=== PATIENT | female | born 1940 | race Caucasian/White ===

== ENCOUNTER → 2017-01-12 | Outpatient (REF) | payer MEDICARE ==
[~2017-01-12] MED LIST: ASPI81TA83 OR; ATEN50TA2 OR; HYDR25TA6 OR; LIPI20TA OR
[2017-01-12 12:15] LABS: BASO % 0.7 % (0.0-1.0); EOS # 0.3 K/mm3 (0.0-0.50); EOS % 5.3 % (0.0-3.0); LARGE UNSTAINED CELL # 0.2 K/mm3 (0.0-0.4); LARGE UNSTAINED CELL % 2.8 % (0.0-4.0); LYMPH # 2.3 K/mm3 (1.5-4.5); LYMPH % 32.4 % (24.0-44.0); MEAN CORPUSCULAR HEMOGLOBIN 30.5 pg (27.0-33.0); MEAN CORPUSCULAR HGB CONC 33.9 g/dl (32.0-36.5); MEAN CORPUSCULAR VOLUME 90.1 fl (80.0-96.0); MONO # 0.5 K/mm3 (0.0-0.8); MONO % 7.1 % (0.0-5.0); NEUTROPHILS # 3.3 K/mm3 (1.8-7.7); NEUTROPHILS % 51.8 % (36.0-66.0); PLATELET COUNT, AUTOMATED 204 k/mm3 (150-450); RED CELL DISTRIBUTION WIDTH 13.2 % (11.5-14.5); WHITE BLOOD COUNT 6.4 K/mm3 (4.0-10.0)
[2017-01-12 12:32] LABS: ALBUMIN 3.3 GM/DL (3.2-5.2); ALBUMIN/GLOBULIN RATIO 1.14 (1.00-1.93); ALKALINE PHOSPHATASE 90 U/L (45-117); ALT/SGPT 19 U/L (12-78); ANION GAP 6 MEQ/L (8-16); AST/SGOT 13 U/L (15-37); BILIRUBIN,TOTAL 0.6 MG/DL (0.2-1.0); BLOOD UREA NITROGEN 16 MG/DL (7-18); CALCIUM LEVEL 8.6 MG/DL (8.8-10.2); CARBON DIOXIDE LEVEL 28 MEQ/L (21-32); CHLORIDE LEVEL 108 MEQ/L (98-107); CHOLESTEROL LEVEL 148 MG/DL (<200); CREATININE FOR GFR 0.84 MG/DL (0.55-1.02); FREE T4 0.94 NG/DL (0.76-1.46); GLOMERULAR FILTRATION RATE > 60.0 (>39); GLUCOSE, FASTING 115 MG/DL (83-110); POTASSIUM SERUM 4.2 MEQ/L (3.5-5.1); SODIUM LEVEL 142 MEQ/L (136-145); TOTAL PROTEIN 6.2 GM/DL (6.4-8.2); TRIGLYCERIDES LEVEL 115 MG/DL (<150)
== END ==
LOC: M SFHCPLAZ 09:19
PROVIDERS: ATTEND Nurse Practitioner Family
DX: I10 Essential (primary) hypertension (principal); E11.9 Type 2 diabetes mellitus without complications; H04.123 Dry eye syndrome of bilateral lacrimal glands; E78.4 Other hyperlipidemia

== ENCOUNTER → 2018-01-28 | Outpatient (CLI) | payer MEDICARE | LOC: M WHC 14:30 | DX: Z12.31 Encounter for screening mammogram for malignant neoplasm of breast (principal) | CPT/HCPCS: 77067 ==

== ENCOUNTER → 2018-04-25 | Outpatient (REF) | payer MEDICARE ==
[2018-04-25 12:56] LABS: ESTIMATED AVERAGE GLUCOSE 120 MG/DL (60-110); HEMOGLOBIN A1c 5.8 %
[2018-04-25 13:09] LABS: ALBUMIN 3.4 GM/DL (3.2-5.2); ALBUMIN/GLOBULIN RATIO 1.06 (1.00-1.93); ALKALINE PHOSPHATASE 68 U/L (45-117); ALT/SGPT 26 U/L (12-78); ANION GAP 12 MEQ/L (8-16); AST/SGOT 18 U/L (7-37); BILIRUBIN,TOTAL 0.6 MG/DL (0.2-1.0); BLOOD UREA NITROGEN 21 MG/DL (7-18); CALCIUM LEVEL 8.1 MG/DL (8.8-10.2); CARBON DIOXIDE LEVEL 22 MEQ/L (21-32); CHLORIDE LEVEL 112 MEQ/L (98-107); CHOLESTEROL LEVEL 127 MG/DL (<200); CHOLESTEROL RISK RATIO 2.116 (<5); CREATININE FOR GFR 0.79 MG/DL (0.55-1.30); GLOMERULAR FILTRATION RATE > 60.0 (>39); GLUCOSE, FASTING 98 MG/DL (70-100); HDL CHOLESTEROL 60 MG/DL (>40); LDL CHOLESTEROL 48 MG/DL (<100); NON-HDL-C 67 MG/DL; POTASSIUM SERUM 4.1 MEQ/L (3.5-5.1); SODIUM LEVEL 146 MEQ/L (136-145); TOTAL PROTEIN 6.6 GM/DL (6.4-8.2); TRIGLYCERIDES LEVEL 97 MG/DL (<150)
[2018-04-25 13:53] LABS: MALB URINE SIEMENS 15.7 MG/L
[2018-04-25 14:12] LABS: MAU/CREAT RATIO 13.1 MCG/MG (0.0-30.0)
== END ==
LOC: M SFHCPLAZ 09:52
DX: E11.9 Type 2 diabetes mellitus without complications (principal); E78.4 Other hyperlipidemia
CPT/HCPCS: 80053

== ENCOUNTER → 2019-05-09 | Outpatient (REF) | payer MEDICARE ==
[2019-05-09 12:17] LABS: ALBUMIN 3.7 GM/DL (3.2-5.2); ALT/SGPT 33 U/L (12-78); BILIRUBIN,TOTAL 0.9 MG/DL (0.2-1.0); BLOOD UREA NITROGEN 18 MG/DL (7-18); CALCIUM LEVEL 9.2 MG/DL (8.8-10.2); CARBON DIOXIDE LEVEL 29 MEQ/L (21-32); CHLORIDE LEVEL 108 MEQ/L (98-107); CHOLESTEROL LEVEL 155 MG/DL (<200); CHOLESTEROL RISK RATIO 2.627 (<5); CREATININE FOR GFR 0.95 MG/DL (0.55-1.30); GLOMERULAR FILTRATION RATE > 60.0 (>32); GLUCOSE, FASTING 136 MG/DL (70-100); HDL CHOLESTEROL 59 MG/DL (>40); LDL CHOLESTEROL 64 MG/DL (<100); NON-HDL-C 96 MG/DL; POTASSIUM SERUM 4.2 MEQ/L (3.5-5.1); SODIUM LEVEL 144 MEQ/L (136-145); TOTAL 25(OH) VITAMIN D 36.6 NG/ML (30.0-100.0); TOTAL PROTEIN 6.6 GM/DL (6.4-8.2); TRIGLYCERIDES LEVEL 160 MG/DL (<150)
[2019-05-09 12:29] LABS: HEMOGLOBIN A1c 6.3 %
[2019-05-09 12:43] LABS: MALB URINE SIEMENS 38.6 MG/L; MAU/CREAT RATIO 28.3 MCG/MG (0.0-30.0)
== END ==
LOC: M SFHCPLAZ 09:25
PROVIDERS: ATTEND Nurse Practitioner Family
DX: E11.9 Type 2 diabetes mellitus without complications (principal); E78.49 Other hyperlipidemia; M85.80 Other specified disorders of bone density and structure, unspecified site; Z79.82 Long term (current) use of aspirin

== ENCOUNTER → 2019-12-29 | Outpatient (REF) | payer MEDICARE ==
[2019-12-29 13:52] LABS: HEMOGLOBIN A1c 6.2 %
[2019-12-29 14:00] LABS: ALBUMIN 3.8 GM/DL (3.2-5.2); ALT/SGPT 29 U/L (12-78); BILIRUBIN,TOTAL 0.8 MG/DL (0.2-1.0); BLOOD UREA NITROGEN 21 MG/DL (7-18); CALCIUM LEVEL 9.4 MG/DL (8.8-10.2); CARBON DIOXIDE LEVEL 30 MEQ/L (21-32); CHLORIDE LEVEL 107 MEQ/L (98-107); CREATININE FOR GFR 0.91 MG/DL (0.55-1.30); GLOMERULAR FILTRATION RATE > 60.0 (>32); GLUCOSE, FASTING 138 MG/DL (70-100); POTASSIUM SERUM 4.1 MEQ/L (3.5-5.1); SODIUM LEVEL 143 MEQ/L (136-145); TOTAL PROTEIN 6.9 GM/DL (6.4-8.2)
== END ==
LOC: M PLALAB 11:32
PROVIDERS: ATTEND Nurse Practitioner Family
DX: E11.9 Type 2 diabetes mellitus without complications (principal); M85.80 Other specified disorders of bone density and structure, unspecified site

== ENCOUNTER → 2020-01-08 | Outpatient (REF) | payer MEDICARE ==
[2020-01-08 12:47] LABS: CREATININE, URINE 69.5 MG/DL; MALB URINE SIEMENS 9.3 MG/L; MAU/CREAT RATIO 13.3 MCG/MG (0.0-30.0)
== END ==
LOC: M SFHCPLAZ 10:58
PROVIDERS: ATTEND Nurse Practitioner Family
DX: E11.9 Type 2 diabetes mellitus without complications (principal)

== ENCOUNTER → 2020-02-13 | Outpatient (CLI) | payer MEDICARE ==
--- NOTE | 2020-02-13 14:30 | REPMRS ---
Patient History The patient states she has not had a clinical breast exam in over a year. Family history of breast cancer at age 50 or over in mother. Benign excisional biopsy of the left breast. No Hormone Replacement Therapy 3D TOMOSYNTHESIS WAS PERFORMED. [facility] lifetime risk for [facility] cancer is 3.8%. VOLPARA DENSITY B. Digital Woman Screen Mammo: February 13, 2020 - Exam #: [id number] Bilateral CC and MLO view(s) were taken. Technologist: Sharlene Berry, Technologist Prior study comparison: January 28, 2018, bilateral digital woman screen mammo performed at [facility]. December 12, 2016, left breast digital mammo diagnostic unilateral, performed at [facility]. FINDINGS: There are scattered fibroglandular densities. There has been no change in the appearance of the mammogram from the prior studies. There is a mild amount of residual fibroglandular tissue which is fairly symmetric. There is no interval development of dominant mass, architectural distortion, or clustered microcalcification suggestive of malignancy. Assessment: BI-RADS/ACR category 1 mammogram. Negative Mammogram. Recommendation Routine screening mammogram in 1 year (for women over age 40). This mammogram was interpreted with the aid of an FDA-approved computer-aided dectection system. Electronically Signed By: Jevon Ferreira MD 02/13/20 [id number]
== END ==
LOC: M WHC 13:16
PROVIDERS: ATTEND Nurse Practitioner Family
DX: Z12.31 Encounter for screening mammogram for malignant neoplasm of breast (principal); Z80.3 Family history of malignant neoplasm of breast

== ENCOUNTER → 2020-04-29 | Outpatient (REF) | payer MEDICARE ==
[2020-04-29 14:27] LABS: HEMOGLOBIN A1c 5.8 %
[2020-04-29 14:45] LABS: ALBUMIN 3.5 GM/DL (3.2-5.2); ALT/SGPT 26 U/L (12-78); BILIRUBIN,TOTAL 0.6 MG/DL (0.2-1.0); BLOOD UREA NITROGEN 17 MG/DL (7-18); CALCIUM LEVEL 9.1 MG/DL (8.8-10.2); CARBON DIOXIDE LEVEL 28 MEQ/L (21-32); CHLORIDE LEVEL 108 MEQ/L (98-107); CHOLESTEROL LEVEL 147 MG/DL (<200); CHOLESTEROL RISK RATIO 2.333 (<5); CREATININE FOR GFR 0.95 MG/DL (0.55-1.30); GLOMERULAR FILTRATION RATE > 60.0 (>32); GLUCOSE, FASTING 141 MG/DL (70-100); HDL CHOLESTEROL 63 MG/DL (>40); LDL CHOLESTEROL 65 MG/DL (<100); NON-HDL-C 84 MG/DL; POTASSIUM SERUM 4.2 MEQ/L (3.5-5.1); SODIUM LEVEL 143 MEQ/L (136-145); TOTAL 25(OH) VITAMIN D 44.2 NG/ML (30.0-100.0); TOTAL PROTEIN 6.5 GM/DL (6.4-8.2); TRIGLYCERIDES LEVEL 95 MG/DL (<150)
[2020-04-29 14:56] LABS: MALB URINE SIEMENS 89.1 MG/L; MAU/CREAT RATIO 53.6 MCG/MG (0.0-30.0)
== END ==
LOC: M PLALAB 10:46
PROVIDERS: ATTEND Nurse Practitioner Family
DX: E11.9 Type 2 diabetes mellitus without complications (principal); E78.49 Other hyperlipidemia; M85.80 Other specified disorders of bone density and structure, unspecified site

== ENCOUNTER 2021-02-09 16:52 | Emergency (ER) | payer MEDICARE ==
[~2021-02-09] VITALS: Ht 157.5 cm; Wt 77.1 kg
[2021-02-09] MEDS ORDERED: ATEN50TA2 (16:59)
--- NOTE | 2021-02-09 17:49 | REP ---
INDICATION: hypertension. COMPARISON: Portable exam 03/02/2011 the only prior FINDINGS: The superior mediastinal structures are midline. The cardiac silhouette is unremarkable in size, shape, and position. The diaphragmatic surfaces of the lungs are regular, and the costophrenic angles are clear. The pulmonary molina are clear. The imaged osseous structures are intact. IMPRESSION: There is no acute cardiopulmonary disease. <Electronically signed by Wilmar Zapata > 02/09/21 [id number]
[2021-02-09 18:11] LABS: BASO # 0.1 10^3/uL (0.0-0.2); BASO % 0.7 % (0.0-1.0); EOS # 0.1 10^3/uL (0.0-0.5); EOS % 1.8 % (0.0-3.0); HEMATOCRIT 51.1 % (36.0-47.0); HEMOGLOBIN 16.9 g/dl (12.0-15.5); LYMPH # 1.3 10^3/uL (1.5-5.0); LYMPH % 18.8 % (24.0-44.0); MEAN CORPUSCULAR HEMOGLOBIN 30.3 pg (27.0-33.0); MEAN CORPUSCULAR HGB CONC 33.1 g/dl (32.0-36.5); MEAN CORPUSCULAR VOLUME 91.7 fl (80.0-96.0); MONO # 0.5 10^3/uL (0.0-0.8); MONO % 7.5 % (2.0-8.0); NEUTROPHILS # 4.7 10^3/uL (1.5-8.5); NEUTROPHILS % 70.9 % (36.0-66.0); PLATELET COUNT, AUTOMATED 190 10^3/uL (150-450); RED BLOOD COUNT 5.57 10^6/uL (4.00-5.40); WHITE BLOOD COUNT 6.7 10^3/uL (4.0-10.0)
[2021-02-09 19:09] LABS: ALBUMIN 3.7 GM/DL (3.2-5.2); ALT/SGPT 39 U/L (12-78); BILIRUBIN,DIRECT 0.2 MG/DL (0.0-0.2); BILIRUBIN,TOTAL 0.8 MG/DL (0.2-1.0); BLOOD UREA NITROGEN 21 MG/DL (7-18); CALCIUM LEVEL 8.9 MG/DL (8.8-10.2); CARBON DIOXIDE LEVEL 27 MEQ/L (21-32); CHLORIDE LEVEL 109 MEQ/L (98-107); CK-MB VALUE MASS 1.1 NG/ML (<3.6); CPK CREATINE PHOSPHOKINASE 57 U/L (26-192); CREATININE FOR GFR 0.87 MG/DL (0.55-1.30); FREE T4 0.92 NG/DL (0.76-1.46); GLOMERULAR FILTRATION RATE > 60.0 (>32); GLUCOSE, FASTING 126 MG/DL (70-100); MB/CK RELATIVE INDEX 1.93 (< OR =4); SODIUM LEVEL 143 MEQ/L (136-145); THYROID STIMULATING HORMONE 0.835 uIU/ML (0.358-3.740); TROPONIN I < 0.02 NG/ML (< 0.10)
[2021-02-09] MEDS ORDERED: ISOVUE-370 76% 100ML VIAL As Ordered ONE (19:12)
--- NOTE | 2021-02-09 20:26 | REPVR ---
PROCEDURE INFORMATION: Exam: CTA Chest With Contrast Exam date and time: 02/09/2021 7:20 PM Age: 80 years old Clinical indication: Other: Hypertension different between arms R/O dissection TECHNIQUE: Imaging protocol: Computed tomographic angiography of the chest with contrast. 3D rendering (Not supervised by radiologist): MIP and/or 3D reconstructed images were created by the technologist. Radiation optimization: All CT scans at this facility use at least one of these dose optimization techniques: automated exposure control; mA and/or kV adjustment per patient size (includes targeted exams where dose is matched to clinical indication); or iterative reconstruction. Contrast material: ISOVUE 370; Contrast volume: 100 ml; Contrast route: INTRAVENOUS (IV); COMPARISON: IA Chest, 2 view PA, Lat 02/09/2021 5:27 PM FINDINGS: Pulmonary arteries: Normal. No pulmonary emboli. Aorta: Unremarkable. No aortic aneurysm. No aortic dissection. Lungs: Hypoventilatory changes in the dependent portion of both lungs. Mosaic perfusion abnormality suggested at the lung bases. Pleural spaces: Unremarkable. No pneumothorax. No pleural effusion. Heart: Unremarkable. No cardiomegaly. No pericardial effusion. Mediastinal space: Small sliding hiatal hernia. Lymph nodes: Unremarkable. No enlarged lymph nodes. Bones/joints: Unremarkable. No acute fracture. Soft tissues: Unremarkable. IMPRESSION: 1. No evidence of aortic aneurysm or dissection. 2. Mosaic perfusion abnormality at the lung bases. This could be related to air trapping, or hypoventilatory change. No findings to suggest chronic veno-occlusive disease or pneumonia 3. Small sliding hiatal hernia PROCEDURE INFORMATION: Exam: CT Abdomen And Pelvis With Contrast Exam date and time: 02/09/2021 7:20 PM Age: 80 years old Clinical indication: Other: Hypertension different between arms R/O dissection TECHNIQUE: Imaging protocol: Computed tomography of the abdomen and pelvis with contrast. COMPARISON: IA Chest, 2 view PA, Lat 02/09/2021 5:27 PM FINDINGS: Liver: Normal. No mass. Gallbladder and bile ducts: The gallbladder is distended with multiple gallstones. Pancreas: Normal. No ductal dilation. Spleen: Normal. No splenomegaly. Adrenal glands: Normal. No mass. Kidneys and ureters: 1.5 cm exophytic simple cyst lower pole left kidney. No hydronephrosis in either kidney. Stomach and bowel: Colonic diverticulosis most severe in the sigmoid colon. Moderate to large amount of stool present within the colon. Appendix: Appendix not seen as separate structure. Intraperitoneal space: Unremarkable. No free air. No significant fluid collection. Vasculature: Unremarkable. No abdominal aortic aneurysm. Lymph nodes: Unremarkable. No enlarged lymph nodes. Urinary bladder: Unremarkable as visualized. Reproductive: The uterus is absent. Bones/joints: Grade 1 spondylolisthesis with 7 mm retrolisthesis L5 with respect.. No acute fracture. Soft tissues: There is a anterior abdominal wall hernia on the left with herniation of mesenteric fat. 1 cm umbilical hernia containing fat with no signs of strangulation. IMPRESSION: 1. Left paramidline anterior abdominal wall hernia containing fat. No signs of strangulation. 2. Moderate to large amount of stool seen throughout the colon. 3. Colonic diverticulosis. No diverticulitis seen. 4. Gallbladder is distended with gallstones. 5. Small sliding hiatal hernia. COMMENTS: Consistent with the [employer]'s Incidental Findings Committee white paper (J Am Justine Radiol 2018): Any incidental renal lesion less than 1 cm or classified as too small to characterize, or any incidental cystic renal lesion characterized as simple-appearing, is likely benign. No follow-up imaging is recommended for these lesions per consensus recommendations based on imaging criteria. Electronically signed by: She Mosqueda On 02/09/2021 20:25:27 PM
--- NOTE | 2021-02-09 20:56 | ECGEPIP ---
[facility] - ED Test Date: 2021-02-09 Pat Name: LEXIE PURDY Department: Room: - Gender: Female Slot Editor: UMESH : 1940 Requested By: DANIEL Jhaveri Order Number: [id number] Reading MD: Igor Bass Measurements Intervals [place] Rate: 62 P: 41 ME: 192 QRS: -21 QRSD: 86 T: 18 QT: 400 QTc: 406 Interpretive Statements Normal sinus rhythm Moderate voltage criteria for LVH, may be normal variant ( R in aVL , Oxford product ) Cannot rule out Anterior infarct , age undetermined NO PRIORS FOR COMPARISON Electronically Signed on 02-09-2021 20:56:02 EDT by Igor Bass
[2021-02-09 21:16] VITALS: BP 188/84
== END 2021-02-09 21:17 | disposition home or self-care (01) ==
LOC: M ED 16:52
DX: H11.31 Conjunctival hemorrhage, right eye (principal); I10 Essential (primary) hypertension; E11.9 Type 2 diabetes mellitus without complications; E78.9 Disorder of lipoprotein metabolism, unspecified; M19.90 Unspecified osteoarthritis, unspecified site; J30.89 Other allergic rhinitis; Z79.899 Other long term (current) drug therapy
CPT/HCPCS: 36415; 71046; 71275; 74177; 80048; 80076; 82550; 82553; 84439; 84443; 84484; 85025; 93005; 93041; 94760; 99285; Q9967

== ENCOUNTER → 2021-02-15 | Outpatient (CLI) | payer MEDICARE ==
[~2021-02-15] MED LIST changes: +ATEN50TA2
--- NOTE | 2021-02-15 15:49 | REPMRS ---
Patient History The patient states she has not had a clinical breast exam in over a year. Family history of breast cancer at age 50 or over in mother. Benign excisional biopsy of the left breast. No Hormone Replacement Therapy Patient states no breast complaints today. Patient has signed MRS History Sheet. Digital Woman Screen Mammo: February 15, 2021 - Exam #: [id number] Bilateral CC and MLO view(s) were taken. Technologist: Padmini Bautista, Technologist Prior study comparison: February 13, 2020, bilateral digital woman screen mammo performed at [facility]. January 28, 2018, bilateral digital woman screen mammo performed at [facility]. December 08, 2016, bilateral digital mammo screening bilat, performed at [facility]. FINDINGS: There are scattered fibroglandular densities. The Volpara volumetric breast density category is:B. A stable skin tag and a stable small nodule are visible in the left breast unchanged. There has been no change in the appearance of the mammogram from the prior studies. There is a mild amount of scattered fibroglandular density which is fairly symmetric. There is no interval development of dominant mass, architectural distortion, or grouped microcalcification suggestive of malignancy. 3-D tomosynthesis shows no additional findings. Assessment: BI-RADS/ACR category 2 mammogram. Benign Findings. Recommendation Routine screening mammogram of both breasts in 1 year (for women over age 40). This patient's [facility] Lifetime Breast Cancer Risk is estimated at 3.1 %. This mammogram was interpreted with the aid of an FDA-approved computer-aided dectection system. Electronically Signed By: Carlos Guerrero MD 02/15/21 [id number]
--- NOTE | 2021-02-15 16:31 | DEXAMM ---
INDICATION: M85.80 OSTEOPENIA. COMPARISON: 11/14/2013 as well as other prior exams. TECHNIQUE: Bone density was measured using dual-energy x-ray absorptiometry (DEXA). FINDINGS: AP SPINE L1-L4 BMD 1.158 g/cm2 Young Adult T-Score -0.3 Age Matched Z-Score 1.6. LT FEMUR, TOTAL BMD 0.810 g/cm2 Young Adult T-Score -1.6 Age Matched Z-Score 0.5. LT NECK BMD 0.781 g/cm2 Young Adult T-Score -1.9 Age Matched Z-Score 0.4. RT FEMUR, TOTAL BMD 0.840 g/cm2 Young Adult T-Score -1.3 Age Matched Z-Score 0.8. RT NECK BMD 0.810 g/cm2 Young Adult T-Score -1.6 Age Matched Z-Score 0.6. IMPRESSION: There is normal bone density of the spine. There is low bone density of the left hip. There is low bone density of the right hip. The density of the spine has increased 18.3% since the initial exam on 11/22/2005. The density of the spine increased 1.8% since most recent exam on 11/14/2013. The density of the left hip has increased 4.5% since initial exam on 11/14/2013. The density of the right hip has decreased 21.9% since the initial exam on 11/22/2004. The density of the right hip has decreased 0.4% since the most recent exam on 11/14/2013. FOLLOW-UP: Recommendation for the next bone density exam: 2 years. <Electronically signed by Jevon Ferreira > 02/15/21 [id number]
== END ==
LOC: M WHC 14:19
PROVIDERS: ATTEND Nurse Practitioner Family
DX: Z12.31 Encounter for screening mammogram for malignant neoplasm of breast (principal); Z80.3 Family history of malignant neoplasm of breast; Z98.890 Other specified postprocedural states; M85.851 Other specified disorders of bone density and structure, right thigh; M85.852 Other specified disorders of bone density and structure, left thigh

== ENCOUNTER → 2021-05-10 | Outpatient (CLI) | payer MEDICARE ==
[2021-05-10 14:32] LABS: HEMOGLOBIN A1c 6.2 %
[2021-05-10 14:39] LABS: ALBUMIN 3.3 GM/DL (3.2-5.2); ALT/SGPT 33 U/L (12-78); BILIRUBIN,TOTAL 0.7 MG/DL (0.2-1.0); BLOOD UREA NITROGEN 18 MG/DL (7-18); CALCIUM LEVEL 9.7 MG/DL (8.8-10.2); CARBON DIOXIDE LEVEL 28 MEQ/L (21-32); CHLORIDE LEVEL 110 MEQ/L (98-107); CHOLESTEROL LEVEL 165 MG/DL (<200); CHOLESTEROL RISK RATIO 2.538 (<5); CREATININE FOR GFR 0.84 MG/DL (0.55-1.30); GLOMERULAR FILTRATION RATE > 60.0 (>32); GLUCOSE, FASTING 151 MG/DL (70-100); HDL CHOLESTEROL 65 MG/DL (>40); LDL CHOLESTEROL 73 MG/DL (<100); NON-HDL-C 100 MG/DL; POTASSIUM SERUM 4.5 MEQ/L (3.5-5.1); SODIUM LEVEL 144 MEQ/L (136-145); TOTAL PROTEIN 6.5 GM/DL (6.4-8.2); TRIGLYCERIDES LEVEL 135 MG/DL (<150)
[2021-05-10 14:45] LABS: MALB URINE SIEMENS 47.5 MG/L; MAU/CREAT RATIO 34.4 MCG/MG (0.0-30.0)
[2021-05-10 14:46] LABS: TOTAL 25(OH) VITAMIN D 31.7 NG/ML (30.0-100.0)
== END ==
LOC: M PLALAB 10:22
PROVIDERS: ATTEND Nurse Practitioner Family
DX: E78.49 Other hyperlipidemia (principal); E11.9 Type 2 diabetes mellitus without complications; M85.80 Other specified disorders of bone density and structure, unspecified site

== ENCOUNTER → 2021-11-02 | Outpatient (CLI) | payer MEDICARE ==
[2021-11-02 17:15] LABS: HEMOGLOBIN 15.9 g/dl (12.0-15.5); MEAN CORPUSCULAR HEMOGLOBIN 30.5 pg (27.0-33.0); MEAN CORPUSCULAR HGB CONC 33.1 g/dl (32.0-36.5); PLATELET COUNT, AUTOMATED 227 10^3/uL (150-450); RED BLOOD COUNT 5.22 10^6/uL (4.00-5.40); WHITE BLOOD COUNT 7.6 10^3/uL (4.0-10.0)
[2021-11-02 17:27] LABS: BLOOD UREA NITROGEN 21 MG/DL (7-18); CALCIUM LEVEL 9.2 MG/DL (8.8-10.2); CARBON DIOXIDE LEVEL 28 MEQ/L (21-32); CHLORIDE LEVEL 110 MEQ/L (98-107); CREATININE FOR GFR 0.84 MG/DL (0.55-1.30); GLOMERULAR FILTRATION RATE > 60.0 (>32); GLUCOSE, FASTING 119 MG/DL (70-100); POTASSIUM SERUM 4.5 MEQ/L (3.5-5.1); SODIUM LEVEL 142 MEQ/L (136-145)
[2021-11-02 17:30] LABS: MALB URINE SIEMENS 31.2 MG/L; MAU/CREAT RATIO 26.6 MCG/MG (0.0-30.0)
[2021-11-02 17:32] LABS: HEMOGLOBIN A1c 6.1 %
== END ==
LOC: M PLALAB 14:32
PROVIDERS: ATTEND Family Medicine
DX: D58.2 Other hemoglobinopathies (principal); E11.9 Type 2 diabetes mellitus without complications; I10 Essential (primary) hypertension

== ENCOUNTER → 2022-06-27 | Outpatient (CLI) | payer MEDICARE ==
[2022-06-27 15:40] LABS: BASO # 0.1 10^3/uL (0.0-0.2); BASO % 1.3 % (0.0-1.0); EOS # 0.2 10^3/uL (0.0-0.5); EOS % 2.7 % (0.0-3.0); HEMATOCRIT 52.1 % (36.0-47.0); HEMOGLOBIN 16.5 g/dl (12.0-15.5); LYMPH # 1.1 10^3/uL (1.5-5.0); LYMPH % 19.7 % (24.0-44.0); MEAN CORPUSCULAR HEMOGLOBIN 29.7 pg (27.0-33.0); MEAN CORPUSCULAR HGB CONC 31.7 g/dl (32.0-36.5); MEAN CORPUSCULAR VOLUME 93.7 fl (80.0-96.0); MONO # 0.5 10^3/uL (0.0-0.8); MONO % 8.6 % (2.0-8.0); NEUTROPHILS # 3.7 10^3/uL (1.5-8.5); NEUTROPHILS % 67.5 % (36.0-66.0); PLATELET COUNT, AUTOMATED 199 10^3/uL (150-450); RED BLOOD COUNT 5.56 10^6/uL (4.00-5.40); WHITE BLOOD COUNT 5.5 10^3/uL (4.0-10.0)
[2022-06-27 16:09] LABS: ALBUMIN 3.7 G/DL (3.2-5.2); CARBON DIOXIDE LEVEL 30 MMOL/L (20-31); CHLORIDE LEVEL 106 MMOL/L (98-107); SODIUM LEVEL 144 MMOL/L (136-145)
[2022-06-27 16:14] LABS: ALKALINE PHOSPHATASE 64 U/L (46-116); CALCIUM LEVEL 9.2 MG/DL (8.3-10.6); GLUCOSE, FASTING 149 MG/DL (74-106)
[2022-06-27 16:15] LABS: AST/SGOT 19 U/L (<34); BLOOD UREA NITROGEN 16 MG/DL (9-23); TRIGLYCERIDES LEVEL 112 MG/DL (<150)
[2022-06-27 16:16] LABS: CREATININE, URINE 129.1 MG/DL; MAU/CREAT RATIO 9.2 MCG/MG (0.0-30.0)
[2022-06-27 16:17] LABS: BILIRUBIN,TOTAL 1.1 MG/DL (0.3-1.2); CHOLESTEROL LEVEL 127 MG/DL (<200); CHOLESTEROL RISK RATIO 2.18 (<5); CREATININE FOR GFR 0.76 MG/DL (0.55-1.30); GLOMERULAR FILTRATION RATE > 60.0 (>32); LDL CHOLESTEROL 46.6 MG/DL (<100); NON-HDL-C 69 MG/DL; TOTAL PROTEIN 6.3 G/DL (5.7-8.2)
[2022-06-27 16:18] LABS: TOTAL 25(OH) VITAMIN D 37.7 NG/ML (20.0-100.0)
[2022-06-27 16:41] LABS: ALT/SGPT 19 U/L (7.0-40)
== END ==
LOC: M PLALAB 12:14
PROVIDERS: ATTEND Nurse Practitioner Family
DX: E11.9 Type 2 diabetes mellitus without complications (principal)

== ENCOUNTER → 2023-02-07 | Outpatient (CLI) | payer MEDICARE ==
[2023-02-07 13:23] LABS: BASO # 0.1 10^3/uL (0.0-0.2); BASO % 1.2 % (0.0-1.0); EOS # 0.2 10^3/uL (0.0-0.5); EOS % 3.6 % (0.0-3.0); HEMATOCRIT 48.4 % (36.0-47.0); HEMOGLOBIN 15.9 g/dl (12.0-15.5); LYMPH # 1.7 10^3/uL (1.5-5.0); LYMPH % 30.5 % (24.0-44.0); MEAN CORPUSCULAR HEMOGLOBIN 30.3 pg (27.0-33.0); MEAN CORPUSCULAR HGB CONC 32.9 g/dl (32.0-36.5); MEAN CORPUSCULAR VOLUME 92.4 fl (80.0-96.0); MONO # 0.6 10^3/uL (0.0-0.8); MONO % 10.2 % (2.0-8.0); NEUTROPHILS # 3.1 10^3/uL (1.5-8.5); NEUTROPHILS % 54.3 % (36.0-66.0); PLATELET COUNT, AUTOMATED 184 10^3/uL (150-450); RED BLOOD COUNT 5.24 10^6/uL (4.00-5.40); WHITE BLOOD COUNT 5.6 10^3/uL (4.0-10.0)
[2023-02-07 13:27] LABS: IRON (FE) 89 UG/DL (50-170); TOTAL IRON BINDING CAPACITY 342 UG/DL (250-425)
[2023-02-07 13:28] LABS: ALBUMIN 3.6 G/DL (3.2-5.2); ALKALINE PHOSPHATASE 58 U/L (46-116); ALT/SGPT 18 U/L (7.0-40); AST/SGOT 10 U/L (<34); BLOOD UREA NITROGEN 21 MG/DL (9-23); CALCIUM LEVEL 9.9 MG/DL (8.3-10.6); CARBON DIOXIDE LEVEL 27 MMOL/L (20-31); CHLORIDE LEVEL 106 MMOL/L (98-107); CHOLESTEROL LEVEL 142 MG/DL (<200); CHOLESTEROL RISK RATIO 2.22 (<5); CREATININE FOR GFR 0.75 MG/DL (0.55-1.30); GLOMERULAR FILTRATION RATE > 60.0 (>32); GLUCOSE, FASTING 129 MG/DL (74-106); HDL CHOLESTEROL 63.8 MG/DL (>40); LDL CHOLESTEROL 61.2 MG/DL (<100); NON-HDL-C 78.2 MG/DL; POTASSIUM SERUM 3.9 MMOL/L (3.5-5.1); SODIUM LEVEL 142 MMOL/L (136-145); TOTAL PROTEIN 6.3 G/DL (5.7-8.2); TRIGLYCERIDES LEVEL 85 MG/DL (<150)
[2023-02-07 13:31] LABS: FERRITIN 34.7 NG/ML (7.3-270.7)
[2023-02-07 13:48] LABS: HEMOGLOBIN A1c 5.9 % (4.0-6.0)
[2023-02-07 13:51] LABS: CREATININE, URINE 104.6 MG/DL; MAU/CREAT RATIO 5.7 MCG/MG (0.0-30.0)
== END ==
LOC: M PLALAB 10:00
PROVIDERS: ATTEND Nurse Practitioner Family
DX: E55.9 Vitamin D deficiency, unspecified (principal); D75.1 Secondary polycythemia; E11.9 Type 2 diabetes mellitus without complications; E78.2 Mixed hyperlipidemia

== ENCOUNTER → 2023-02-23 | Outpatient (CLI) | payer MEDICARE | LOC: M WHC 10:23 | PROVIDERS: ATTEND Nurse Practitioner Family | DX: Z12.31 Encounter for screening mammogram for malignant neoplasm of breast (principal); M85.89 Other specified disorders of bone density and structure, multiple sites ==

== ENCOUNTER → 2023-10-08 | Outpatient (CLI) | payer MEDICARE ==
[2023-10-08 16:07] LABS: CHOLESTEROL RISK RATIO 2.11 (<5); HDL CHOLESTEROL 58.5 MG/DL (>40); LDL CHOLESTEROL 48.3 MG/DL (<100); NON-HDL-C 65.5 MG/DL; THYROID STIMULATING HORMONE 1.021 uIU/ML (0.55-4.78)
[2023-10-08 16:08] LABS: TOTAL 25(OH) VITAMIN D 36.9 NG/ML (20.0-100.0)
[2023-10-08 16:10] LABS: FREE T4 1.04 NG/DL (0.89-1.76)
[2023-10-08 16:12] LABS: BASO # 0.1 10^3/uL (0.0-0.2); BASO % 0.8 % (0.0-1.0); EOS # 0.1 10^3/uL (0.0-0.5); EOS % 1.5 % (0.0-3.0); HEMATOCRIT 51.2 % (36.0-47.0); HEMOGLOBIN 16.4 g/dl (12.0-15.5); LYMPH # 1.7 10^3/uL (1.5-5.0); LYMPH % 23.4 % (24.0-44.0); MEAN CORPUSCULAR VOLUME 93.6 fl (80.0-96.0); MONO # 0.6 10^3/uL (0.0-0.8); MONO % 8.3 % (2.0-8.0); NEUTROPHILS # 4.7 10^3/uL (1.5-8.5); NEUTROPHILS % 65.9 % (36.0-66.0); PLATELET COUNT, AUTOMATED 225 10^3/uL (150-450); RED BLOOD COUNT 5.47 10^6/uL (4.00-5.40); WHITE BLOOD COUNT 7.2 10^3/uL (4.0-10.0)
== END ==
LOC: M PLALAB 13:37
PROVIDERS: ATTEND Nurse Practitioner Family
DX: D75.1 Secondary polycythemia (principal); E55.9 Vitamin D deficiency, unspecified; E78.2 Mixed hyperlipidemia; I10 Essential (primary) hypertension; E11.9 Type 2 diabetes mellitus without complications

== ENCOUNTER → 2024-02-01 | Outpatient (REF) | payer MEDICARE ==
[2024-02-01 17:41] LABS: APPEARANCE, URINE HAZY (CLEAR); BACTERIA, URINE AUTO 1+ (NEGATIVE); BILIRUBIN, URINE AUTO NEGATIVE (NEGATIVE); BLOOD, URINE BLOOD 1+ (NEGATIVE); COLOR, URINE YELLOW (YELLOW); GLUCOSE, URINE (UA) AUTO NEGATIVE (NEGATIVE); KETONE, URINE AUTO NEGATIVE (NEGATIVE); LEUKOCYTE ESTERASE, URINE AUTO 3+ (NEGATIVE); MUCUS, URINE SMALL (NEGATIVE); NITRITE, URINE AUTO NEGATIVE (NEGATIVE); PROTEIN, URINE AUTO NEGATIVE (NEGATIVE); RBC, URINE AUTO 2 /HPF (0-3); SPECIFIC GRAVITY URINE AUTO 1.008 (1.002-1.035); SQUAMOUS EPITHELIAL CELL UR AU 1 /HPF (0-6); UROBILINOGEN, URINE AUTO 0.2 mg/dL (0.0-2.0); WBC, URINE AUTO 2 /HPF (0-3)
== END ==
LOC: M LAB REF 16:44
PROVIDERS: ATTEND Physician Assistant Medical
DX: N39.0 Urinary tract infection, site not specified (principal)

== ENCOUNTER 2024-02-05 11:53 | Inpatient (IN) | payer MEDICARE ==
[~2024-02-05] VITALS: Ht 162.6 cm; Wt 71.3 kg
[~2024-02-05 11:53] MED LIST changes: -ATEN50TA2; +ATEN50TA2 PO; +BACTDSTA PO
[2024-02-05] MEDS ORDERED: ISOVUE-370 76% 100ML VIAL As Ordered ONE (12:18)
[2024-02-05 12:34] LABS: BASO % 0.4 % (0.0-1.0); EOS # 0.1 10^3/uL (0.0-0.5); EOS % 0.8 % (0.0-3.0); HEMATOCRIT 42.7 % (36.0-47.0); HEMOGLOBIN 14.6 g/dl (12.0-15.5); LYMPH # 0.9 10^3/uL (1.5-5.0); LYMPH % 9.3 % (24.0-44.0); MEAN CORPUSCULAR HEMOGLOBIN 30.4 pg (27.0-33.0); MEAN CORPUSCULAR HGB CONC 34.2 g/dl (32.0-36.5); MONO # 1.3 10^3/uL (0.0-0.8); MONO % 13.2 % (2.0-8.0); NEUTROPHILS # 7.2 10^3/uL (1.5-8.5); PLATELET COUNT, AUTOMATED 207 10^3/uL (150-450); WHITE BLOOD COUNT 9.5 10^3/uL (4.0-10.0)
[2024-02-05 12:47] VITALS: BP 111/63; TEMP 97.8; O2SAT 95
[2024-02-05 12:47] LABS: INR 1.16; PARTIAL THROMBOPLASTIN TIME 25.8 SECONDS (24.8-34.2); PROTHROMBIN TIME 14.5 SECONDS (12.5-14.5)
[2024-02-05 12:52] LABS: CK-MB VALUE MASS 1.8 NG/ML (<3.6)
[2024-02-05 12:54] LABS: BLOOD UREA NITROGEN 18 MG/DL (9-23); CALCIUM LEVEL 8.8 MG/DL (8.3-10.6); CARBON DIOXIDE LEVEL 23 MMOL/L (20-31); CHLORIDE LEVEL 100 MMOL/L (98-107); CREATININE FOR GFR 0.84 MG/DL (0.55-1.30); GLOMERULAR FILTRATION RATE > 60.0 (>32); GLUCOSE, FASTING 106 MG/DL (74-106); POTASSIUM SERUM 4.7 MMOL/L (3.5-5.1); SODIUM LEVEL 132 MMOL/L (136-145)
[2024-02-05 13:04] LABS: CPK CREATINE PHOSPHOKINASE 57 U/L (34-145); MB/CK RELATIVE INDEX 3.15 (< OR =4)
[2024-02-05] MEDS: NS 1,000 ML IV SCH ×2 (13:26→18:17)
[2024-02-05] MEDS: ADENOSINE 6MG 2ML INJECTION IV STA ×2 (13:26→14:49)
[2024-02-05 13:51] LABS: MB/CK RELATIVE INDEX 2.46 (< OR =4)
[2024-02-05] MEDS: METOPROLOL TART 25 MG TABLET PO SCH (14:00)
[2024-02-05] MEDS: ASPIRIN 325 MG TAB PO ONE (14:18)
[2024-02-05] MEDS ORDERED: ATOR1TAB21 PO (14:29)
[2024-02-05] MEDS ORDERED: HOME MED LIST COMPLETE! XX SCH (14:30)
[2024-02-05] MEDS ORDERED: GLUC1TAB58 PO (14:36)
[2024-02-05 14:53] LABS: MAGNESIUM LEVEL 1.7 MG/DL (1.8-2.4); PHOSPHORUS LEVEL 3.8 MG/DL (2.4-5.1)
[2024-02-05] MEDS ORDERED: ACETAMINOPHEN TAB 650MG DOSE (2X325MG) PO PRN (15:05)
[2024-02-05 17:00] VITALS: BP 122/58; TEMP 97.9; O2SAT 94
[2024-02-05 17:03] LABS: CHOLESTEROL LEVEL 124 MG/DL (<200); CHOLESTEROL RISK RATIO 2.57 (<5); HDL CHOLESTEROL 48.2 MG/DL (>40); LDL CHOLESTEROL 62.8 MG/DL (<100); NON-HDL-C 75.8 MG/DL; TRIGLYCERIDES LEVEL 65 MG/DL (<150)
[2024-02-05] MEDS: cefTRIAXone SOD 1 GM in D5W MINI-BAG PLUS 50 ML IV SCH (18:20)
[2024-02-05 20:00] VITALS: BP 160/70; TEMP 98.1; O2SAT 94
[2024-02-06] VITALS (8 sets, daily range): BP systolic 109–165; BP diastolic 54–74; TEMP 96.5–98.3; O2SAT 91–98
[2024-02-06 04:45] LABS: HEMATOCRIT 40.6 % (36.0-47.0); HEMOGLOBIN 13.5 g/dl (12.0-15.5); MEAN CORPUSCULAR HEMOGLOBIN 30.4 pg (27.0-33.0); MEAN CORPUSCULAR HGB CONC 33.3 g/dl (32.0-36.5); MEAN CORPUSCULAR VOLUME 91.4 fl (80.0-96.0); PLATELET COUNT, AUTOMATED 209 10^3/uL (150-450); RED BLOOD COUNT 4.44 10^6/uL (4.00-5.40); WHITE BLOOD COUNT 6.7 10^3/uL (4.0-10.0)
[2024-02-06 05:01] LABS: ALBUMIN 2.2 G/DL (3.2-5.2); ALKALINE PHOSPHATASE 47 U/L (46-116); ALT/SGPT 23 U/L (7.0-40); AST/SGOT 13 U/L (<34); BILIRUBIN,TOTAL 0.5 MG/DL (0.3-1.2); BLOOD UREA NITROGEN 15 MG/DL (9-23); CALCIUM LEVEL 8.2 MG/DL (8.3-10.6); CARBON DIOXIDE LEVEL 27 MMOL/L (20-31); CHLORIDE LEVEL 108 MMOL/L (98-107); CREATININE FOR GFR 0.92 MG/DL (0.55-1.30); GLOMERULAR FILTRATION RATE > 60.0 (>32); GLUCOSE, FASTING 120 MG/DL (74-106); POTASSIUM SERUM 4.5 MMOL/L (3.5-5.1); SODIUM LEVEL 139 MMOL/L (136-145); TOTAL PROTEIN 4.8 G/DL (5.7-8.2)
[2024-02-06] MEDS: METOPROLOL TART 12.5 MG PER 1/2 TAB PO SCH (07:19)
[2024-02-06] MEDS: ATORVASTATIN 20 MG TAB PO SCH (08:18)
[2024-02-06] MEDS: ASPIRIN 81MG ENTERIC TABLET PO SCH (08:18)
[2024-02-06] MEDS ORDERED: ATORVASTATIN 20 MG TAB PO SCH (09:00)
[2024-02-06] MEDS: GABAPENTIN 100 MG CAP PO SCH (21:09)
[2024-02-07 04:00] VITALS: BP 125/57; TEMP 97.3; O2SAT 96
[2024-02-07 04:59] LABS: HEMATOCRIT 42.5 % (36.0-47.0); HEMOGLOBIN 14.1 g/dl (12.0-15.5); MEAN CORPUSCULAR HEMOGLOBIN 30.5 pg (27.0-33.0); MEAN CORPUSCULAR HGB CONC 33.2 g/dl (32.0-36.5); MEAN CORPUSCULAR VOLUME 91.8 fl (80.0-96.0); PLATELET COUNT, AUTOMATED 209 10^3/uL (150-450); RED BLOOD COUNT 4.63 10^6/uL (4.00-5.40)
[2024-02-07 05:25] LABS: ALBUMIN 2.4 G/DL (3.2-5.2); ALKALINE PHOSPHATASE 49 U/L (46-116); ALT/SGPT 27 U/L (7.0-40); AST/SGOT 24 U/L (<34); BILIRUBIN,TOTAL 0.5 MG/DL (0.3-1.2); BLOOD UREA NITROGEN 12 MG/DL (9-23); CALCIUM LEVEL 8.8 MG/DL (8.3-10.6); CARBON DIOXIDE LEVEL 27 MMOL/L (20-31); CHLORIDE LEVEL 109 MMOL/L (98-107); CREATININE FOR GFR 0.81 MG/DL (0.55-1.30); GLOMERULAR FILTRATION RATE > 60.0 (>32); GLUCOSE, FASTING 108 MG/DL (74-106); POTASSIUM SERUM 4.7 MMOL/L (3.5-5.1); SODIUM LEVEL 143 MMOL/L (136-145); TOTAL PROTEIN 5.1 G/DL (5.7-8.2)
[2024-02-07 08:11] VITALS: BP 130/62; TEMP 97.6; O2SAT 96
[2024-02-07 08:27] VITALS: BP 130/62
[2024-02-07] MEDS: METOPROLOL SUCC *XL* 25MG TAB (TopROL *XL*) PO SCH (08:27)
[2024-02-07] MEDS: ENOXAPARIN 40MG/0.4ML SYRINGE (J1650 PER 10MG) SC SCH (08:30)
[2024-02-07] MEDS ORDERED: METO25TA4 PO (09:14)
[2024-02-07] MEDS ORDERED: MEDR4PAK PO (09:14)
[2024-02-07] MEDS ORDERED: GABA-1171 PO (09:14)
[2024-02-07] MEDS ORDERED: ACET1TAB55 PO (09:14)
== END 2024-02-07 11:40 | disposition home or self-care (01) | DRG 74 ==
LOC: EDBD 11:53 → M ED 11:53 → M ED INP 15:16 → M ICU 16:58 → M PCU 02-06 14:53
PROVIDERS: ADMIT Internal Medicine; ATTEND Internal Medicine
PROC: B246ZZZ Ultrasonography of Right and Left Heart (ICD-10-PCS; principal; 2024-02-05)
DX: G83.4 Cauda equina syndrome (principal); I47.10 Supraventricular tachycardia, unspecified; Q68.1 Congenital deformity of finger(s) and hand; E11.42 Type 2 diabetes mellitus with diabetic polyneuropathy; I10 Essential (primary) hypertension; E78.5 Hyperlipidemia, unspecified; M19.90 Unspecified osteoarthritis, unspecified site; M85.88 Other specified disorders of bone density and structure, other site; H04.123 Dry eye syndrome of bilateral lacrimal glands; K80.20 Calculus of gallbladder without cholecystitis without obstruction; Z79.899 Other long term (current) drug therapy; Z91.048 Other nonmedicinal substance allergy status

== ENCOUNTER → 2024-04-10 | Outpatient (CLI) | payer MEDICARE ==
[~2024-04-10] MED LIST changes: +ACET1TAB55 PO; +ATOR1TAB21 PO; +GABA-1171 PO; +GLUC1TAB58 PO; +MEDR4PAK PO; +METO25TA4 PO
[2024-04-10 15:41] LABS: BASO % 0.8 % (0.0-1.0); EOS # 0.1 10^3/uL (0.0-0.5); EOS % 1.9 % (0.0-3.0); HEMATOCRIT 47.9 % (36.0-47.0); HEMOGLOBIN 15.7 g/dl (12.0-15.5); MEAN CORPUSCULAR HEMOGLOBIN 30.5 pg (27.0-33.0); MEAN CORPUSCULAR HGB CONC 32.8 g/dl (32.0-36.5); MEAN CORPUSCULAR VOLUME 93.2 fl (80.0-96.0); MONO # 0.5 10^3/uL (0.0-0.8); MONO % 9.9 % (2.0-8.0); NEUTROPHILS # 3.5 10^3/uL (1.5-8.5); NEUTROPHILS % 68.2 % (36.0-66.0); PLATELET COUNT, AUTOMATED 182 10^3/uL (150-450); RED BLOOD COUNT 5.14 10^6/uL (4.00-5.40); WHITE BLOOD COUNT 5.2 10^3/uL (4.0-10.0)
[2024-04-10 16:07] LABS: CREATININE, URINE 118.9 MG/DL; MAU/CREAT RATIO 4.2 MCG/MG (0.0-30.0)
[2024-04-10 16:12] LABS: ALBUMIN 3.6 G/DL (3.2-5.2); ALKALINE PHOSPHATASE 61 U/L (46-116); ALT/SGPT 16 U/L (7.0-40); AST/SGOT 10 U/L (<34); BLOOD UREA NITROGEN 22 MG/DL (9-23); CALCIUM LEVEL 9.5 MG/DL (8.3-10.6); CARBON DIOXIDE LEVEL 29 MMOL/L (20-31); CHLORIDE LEVEL 108 MMOL/L (98-107); GLOMERULAR FILTRATION RATE > 60.0 (>32); GLUCOSE, FASTING 141 MG/DL (74-106); POTASSIUM SERUM 4.3 MMOL/L (3.5-5.1); SODIUM LEVEL 144 MMOL/L (136-145); TOTAL PROTEIN 6.4 G/DL (5.7-8.2)
[2024-04-10 17:37] LABS: HEMOGLOBIN A1c 5.7 % (4.0-6.0)
== END ==
LOC: M PLALAB 11:50
PROVIDERS: ATTEND Nurse Practitioner Family
DX: I10 Essential (primary) hypertension (principal); E11.9 Type 2 diabetes mellitus without complications

== ENCOUNTER 2024-07-21 16:42 | Emergency (ER) | payer MEDICARE ==
[~2024-07-21] VITALS: Ht 160 cm; Wt 75.7 kg
[2024-07-21 17:08] LABS: BASO # 0.1 10^3/uL (0.0-0.2); BASO % 0.6 % (0.0-1.0); EOS # 0.1 10^3/uL (0.0-0.5); EOS % 0.6 % (0.0-3.0); HEMATOCRIT 47.7 % (36.0-47.0); HEMOGLOBIN 15.9 g/dl (12.0-15.5); LYMPH # 1.3 10^3/uL (1.5-5.0); LYMPH % 14.5 % (24.0-44.0); MEAN CORPUSCULAR HEMOGLOBIN 31.2 pg (27.0-33.0); MEAN CORPUSCULAR HGB CONC 33.3 g/dl (32.0-36.5); MEAN CORPUSCULAR VOLUME 93.5 fl (80.0-96.0); MONO # 0.7 10^3/uL (0.0-0.8); MONO % 7.8 % (2.0-8.0); NEUTROPHILS # 6.7 10^3/uL (1.5-8.5); NEUTROPHILS % 76.2 % (36.0-66.0); PLATELET COUNT, AUTOMATED 216 10^3/uL (150-450); WHITE BLOOD COUNT 8.8 10^3/uL (4.0-10.0)
[2024-07-21] MEDS: NS 500 ML IV ONE (17:17)
[2024-07-21 17:33] LABS: ALBUMIN 3.3 G/DL (3.2-5.2); BILIRUBIN,DIRECT 0.2 MG/DL (<0.4); BILIRUBIN,TOTAL 0.8 MG/DL (0.3-1.2); CALCIUM LEVEL 9.4 MG/DL (8.3-10.6); CREATININE FOR GFR 1.13 MG/DL (0.55-1.30); GLOMERULAR FILTRATION RATE 48.7 (>32); MAGNESIUM LEVEL 1.9 MG/DL (1.8-2.4); MB/CK RELATIVE INDEX 2.15 (< OR =4); POTASSIUM SERUM 4.5 MMOL/L (3.5-5.1); TOTAL PROTEIN 6.5 G/DL (5.7-8.2)
[2024-07-21 17:35] LABS: THYROID STIMULATING HORMONE 1.072 uIU/ML (0.55-4.78)
[2024-07-21] MEDS: AMIODARONE HCL 150 MG in IV 1 EA IV STA (17:47)
[2024-07-21] MEDS: APIXABAN 5 MG TAB (ELIQUIS) PO ONE (17:47)
[2024-07-21 17:54] LABS: INR 0.95
[2024-07-21] MEDS: AMIODARONE HCL 360 MG in IV 1 EA IV SCH (18:02)
[2024-07-21 18:36] LABS: CK-MB VALUE MASS 2.1 NG/ML (<3.6)
[2024-07-21 18:41] LABS: MB/CK RELATIVE INDEX 2.33 (< OR =4)
[2024-07-21] MEDS ORDERED: [UNRECOGNIZED DRUG - OTHER] PO (19:38)
[2024-07-21] MEDS ORDERED: tumeric PO (19:38)
[2024-07-21] MEDS ORDERED: HOME MED LIST COMPLETE! XX SCH (19:40)
[2024-07-21] MEDS ORDERED: HEPARIN SOD (PORCINE) 5000UNITS/ML 1ML VIAL/SYRINGE IV PRN (21:05)
[2024-07-21 21:23] LABS: CK-MB VALUE MASS 9.7 NG/ML (<3.6)
[2024-07-21 21:25] LABS: MB/CK RELATIVE INDEX 6.83 (< OR =4)
[2024-07-21] MEDS: HEPARIN DRIP 25,000 UNITS in IV 1 EA IV SCH (21:38)
[2024-07-21] MEDS: ASPIRIN 81MG CHEW TABLET PO ONE (21:39)
[2024-07-21] MEDS: HEPARIN SOD (PORCINE) 5000UNITS/ML 1ML VIAL/SYRINGE IV ONE (21:39)
[2024-07-21] MEDS: ATORVASTATIN 20 MG TAB PO ONE (21:44)
[2024-07-21 21:46] LABS: HEMATOCRIT 46.1 % (36.0-47.0); MEAN CORPUSCULAR HEMOGLOBIN 30.5 pg (27.0-33.0); MEAN CORPUSCULAR HGB CONC 32.5 g/dl (32.0-36.5); MEAN CORPUSCULAR VOLUME 93.7 fl (80.0-96.0); PLATELET COUNT, AUTOMATED 184 10^3/uL (150-450); RED BLOOD COUNT 4.92 10^6/uL (4.00-5.40); WHITE BLOOD COUNT 9.2 10^3/uL (4.0-10.0)
[2024-07-22] MEDS: NS (Normal Saline) 0.9% 1,000 ML IV SCH (07:33)
[2024-07-22 08:20] VITALS: BP 127/64; TEMP 97.5; O2SAT 96
[2024-07-22] MEDS ORDERED: atenoloL 50 MG TAB PO SCH (09:00)
[2024-07-22] MEDS ORDERED: ATORVASTATIN 20 MG TAB PO SCH (09:00)
== END 2024-07-22 08:23 | disposition short-term general hospital (02) ==
LOC: M ED 16:42 → EDBD 16:42 → M ED 07-22 08:23
DX: I21.4 Non-ST elevation (NSTEMI) myocardial infarction (principal); I48.92 Unspecified atrial flutter; E11.9 Type 2 diabetes mellitus without complications; I10 Essential (primary) hypertension; E78.5 Hyperlipidemia, unspecified; J30.81 Allergic rhinitis due to animal (cat) (dog) hair and dander; J30.89 Other allergic rhinitis; Z86.73 Personal history of transient ischemic attack (TIA), and cerebral infarction without residual deficits; Z79.899 Other long term (current) drug therapy
CPT/HCPCS: 71045; 80047; 80048; 80076; 82550; 82553; 83690; 83735; 84443; 84484; 85025; 85027; 85610; 85730; 93005; 93041; 94760; 96365; 96366; 96367; 99285; J0283

== ENCOUNTER 2024-08-30 16:04 | Emergency (ER) | payer MEDICARE ==
[~2024-08-30 16:04] MED LIST changes: +[UNRECOGNIZED DRUG - OTHER] PO; +tumeric PO
[2024-08-30 16:19] VITALS: TEMP 96.8
[2024-08-30 16:35] LABS: BASO # 0.1 10^3/uL (0.0-0.2); BASO % 0.7 % (0.0-1.0); EOS # 0.1 10^3/uL (0.0-0.5); HEMATOCRIT 47.3 % (36.0-47.0); HEMOGLOBIN 15.9 g/dl (12.0-15.5); LYMPH % 14.8 % (24.0-44.0); MEAN CORPUSCULAR HEMOGLOBIN 31.1 pg (27.0-33.0); MEAN CORPUSCULAR HGB CONC 33.6 g/dl (32.0-36.5); MEAN CORPUSCULAR VOLUME 92.6 fl (80.0-96.0); MONO # 0.4 10^3/uL (0.0-0.8); MONO % 5.5 % (2.0-8.0); NEUTROPHILS # 5.4 10^3/uL (1.5-8.5); NEUTROPHILS % 77.7 % (36.0-66.0); PLATELET COUNT, AUTOMATED 188 10^3/uL (150-450); RED BLOOD COUNT 5.11 10^6/uL (4.00-5.40); WHITE BLOOD COUNT 6.9 10^3/uL (4.0-10.0)
[2024-08-30 17:05] LABS: BLOOD UREA NITROGEN 28 MG/DL (9-23); CARBON DIOXIDE LEVEL 25 MMOL/L (20-31); CHLORIDE LEVEL 106 MMOL/L (98-107); CREATININE FOR GFR 0.88 MG/DL (0.55-1.30); GLOMERULAR FILTRATION RATE > 60.0 (>32); GLUCOSE, FASTING 133 MG/DL (74-106); MAGNESIUM LEVEL 1.8 MG/DL (1.8-2.4); POTASSIUM SERUM 4.5 MMOL/L (3.5-5.1); SODIUM LEVEL 143 MMOL/L (136-145)
[2024-08-30 17:06] LABS: THYROID STIMULATING HORMONE 0.944 uIU/ML (0.55-4.78)
[2024-08-30] MEDS: NS 500 ML IV ONE (17:15)
[2024-08-30 18:00] VITALS: BP 119/58; O2SAT 96
== END 2024-08-30 18:14 | disposition home or self-care (01) ==
LOC: M ED 16:04 → EDBD 16:04 → M ED 18:14
DX: I47.10 Supraventricular tachycardia, unspecified (principal); I25.2 Old myocardial infarction; J30.81 Allergic rhinitis due to animal (cat) (dog) hair and dander; J30.89 Other allergic rhinitis; Z79.899 Other long term (current) drug therapy

== ENCOUNTER → 2024-10-21 | Outpatient (CLI) | payer MEDICARE ==
[2024-10-21 15:07] LABS: ALBUMIN 3.4 G/DL (3.2-5.2); ALKALINE PHOSPHATASE 60 U/L (35-104); ALT/SGPT 20 U/L (7.0-40); AST/SGOT 11 U/L (<34); BILIRUBIN,TOTAL 0.7 MG/DL (0.3-1.2); BLOOD UREA NITROGEN 24 MG/DL (9-23); CALCIUM LEVEL 9.3 MG/DL (8.3-10.6); CARBON DIOXIDE LEVEL 27 MMOL/L (20-31); CHLORIDE LEVEL 109 MMOL/L (98-107); CHOLESTEROL LEVEL 148 MG/DL (<200); CREATININE FOR GFR 0.84 MG/DL (0.55-1.30); GLOMERULAR FILTRATION RATE > 60.0 (>32); GLUCOSE, FASTING 134 MG/DL (74-106); HDL CHOLESTEROL 61.5 MG/DL (>40); LDL CHOLESTEROL 67.7 MG/DL (<100); NON-HDL-C 86.5 MG/DL; POTASSIUM SERUM 4.4 MMOL/L (3.5-5.1); SODIUM LEVEL 145 MMOL/L (136-145); TOTAL PROTEIN 6.5 G/DL (5.7-8.2); TRIGLYCERIDES LEVEL 94 MG/DL (<150)
[2024-10-21 15:09] LABS: FREE T4 1.05 NG/DL (0.89-1.76); THYROID STIMULATING HORMONE 1.391 uIU/ML (0.55-4.78)
[2024-10-21 15:18] LABS: BASO # 0.1 10^3/uL (0.0-0.2); BASO % 0.8 % (0.0-1.0); EOS # 0.2 10^3/uL (0.0-0.5); EOS % 3.9 % (0.0-3.0); LYMPH % 33.2 % (24.0-44.0); MEAN CORPUSCULAR HEMOGLOBIN 30.8 pg (27.0-33.0); MEAN CORPUSCULAR HGB CONC 32.7 g/dl (32.0-36.5); MEAN CORPUSCULAR VOLUME 94.2 fl (80.0-96.0); MONO # 0.6 10^3/uL (0.0-0.8); MONO % 9.8 % (2.0-8.0); NEUTROPHILS # 3.1 10^3/uL (1.5-8.5); NEUTROPHILS % 52.1 % (36.0-66.0); PLATELET COUNT, AUTOMATED 189 10^3/uL (150-450); WHITE BLOOD COUNT 5.9 10^3/uL (4.0-10.0)
[2024-10-21 15:27] LABS: HEMOGLOBIN A1c 5.6 % (4.0-6.0)
[2024-10-21 15:44] LABS: CREATININE, URINE 75.7 MG/DL
[2024-10-21 15:45] LABS: MAU/CREAT RATIO 10.5 MCG/MG (0.0-30.0)
== END ==
LOC: M PLALAB 09:38
PROVIDERS: ATTEND Nurse Practitioner Family
DX: E78.2 Mixed hyperlipidemia (principal); E55.9 Vitamin D deficiency, unspecified; I10 Essential (primary) hypertension; R53.83 Other fatigue; Z79.899 Other long term (current) drug therapy

== ENCOUNTER 2024-11-08 14:00 | Observation (INO) | payer MEDICARE ==
[~2024-11-08] VITALS: Ht 160 cm; Wt 72.5 kg
[2024-11-08 14:26] LABS: BASO # 0.1 10^3/uL (0.0-0.2); BASO % 0.7 % (0.0-1.0); EOS # 0.1 10^3/uL (0.0-0.5); EOS % 1.4 % (0.0-3.0); HEMATOCRIT 44.7 % (36.0-47.0); HEMOGLOBIN 14.7 g/dl (12.0-15.5); LYMPH % 14.1 % (24.0-44.0); MEAN CORPUSCULAR HEMOGLOBIN 30.5 pg (27.0-33.0); MEAN CORPUSCULAR HGB CONC 32.9 g/dl (32.0-36.5); MEAN CORPUSCULAR VOLUME 92.7 fl (80.0-96.0); MONO # 0.6 10^3/uL (0.0-0.8); MONO % 9.2 % (2.0-8.0); NEUTROPHILS # 5.1 10^3/uL (1.5-8.5); NEUTROPHILS % 74.2 % (36.0-66.0); PLATELET COUNT, AUTOMATED 193 10^3/uL (150-450); RED BLOOD COUNT 4.82 10^6/uL (4.00-5.40); WHITE BLOOD COUNT 6.9 10^3/uL (4.0-10.0)
[2024-11-08] MEDS: NS 500 ML IV ONE ×2 (14:37→16:03)
[2024-11-08 14:42] LABS: INR 0.99; PARTIAL THROMBOPLASTIN TIME 25.4 SECONDS (24.8-34.2); PROTHROMBIN TIME 13.4 SECONDS (12.5-14.5)
[2024-11-08 15:06] LABS: ALBUMIN 2.8 G/DL (3.2-5.2); ALKALINE PHOSPHATASE 48 U/L (35-104); ALT/SGPT 30 U/L (7.0-40); AST/SGOT 36 U/L (<34); BILIRUBIN,DIRECT 0.2 MG/DL (<0.4); BILIRUBIN,TOTAL 0.8 MG/DL (0.3-1.2); BLOOD UREA NITROGEN 23 MG/DL (9-23); CALCIUM LEVEL 7.7 MG/DL (8.3-10.6); CARBON DIOXIDE LEVEL 25 MMOL/L (20-31); CHLORIDE LEVEL 108 MMOL/L (98-107); CK-MB VALUE MASS < 1.0 NG/ML (<3.6); CPK CREATINE PHOSPHOKINASE 53 U/L (34-145); CREATININE FOR GFR 1.05 MG/DL (0.55-1.30); FREE T4 1.22 NG/DL (0.89-1.76); GLOMERULAR FILTRATION RATE 52.1 (>32); GLUCOSE, FASTING 170 MG/DL (74-106); MAGNESIUM LEVEL 1.6 MG/DL (1.8-2.4); MB/CK RELATIVE INDEX 1.88 (< OR =4); PHOSPHORUS LEVEL 3.3 MG/DL (2.4-5.1); POTASSIUM SERUM 5.2 MMOL/L (3.5-5.1); SODIUM LEVEL 141 MMOL/L (136-145); THYROID STIMULATING HORMONE 0.889 uIU/ML (0.55-4.78); TOTAL PROTEIN 5.4 G/DL (5.7-8.2)
[2024-11-08] MEDS: AMIODARONE HCL 150 MG in IV 1 EA IV ONE (15:44)
[2024-11-08] MEDS: AMIODARONE HCL 360 MG in IV 1 EA IV SCH (15:58)
[2024-11-08] MEDS: ENOXAPARIN 100MG/1ML SYRINGE (J1650 PER 10MG) SC ONE (16:06)
[2024-11-08] MEDS ORDERED: [UNRECOGNIZED DRUG - OTHER] (16:20)
[2024-11-08] MEDS ORDERED: TUMERIC PO ×2 (16:20→16:22)
[2024-11-08] MEDS ORDERED: [UNRECOGNIZED DRUG - OTHER] PO (16:22)
[2024-11-08] MEDS ORDERED: HOME MED LIST COMPLETE! XX SCH ×2 (16:25→22:10)
[2024-11-08] MEDS ORDERED: DEXTROSE 50% 50ML SYRINGE IV PRN (17:05)
[2024-11-08] MEDS ORDERED: GLUCAGON INJ 1MG VIAL SC PRN (17:05)
[2024-11-08] MEDS ORDERED: GLUCOSE 4 GM CHEW PO PRN (17:05)
[2024-11-08] MEDS: INSULIN LISPRO (NovoLOG) PER UNIT SC SCH ×2 (17:17→21:00)
[2024-11-08 20:20] VITALS: BP 134/58; TEMP 97.4; O2SAT 96
[2024-11-08] MEDS: busPIRone 5 MG TAB PO SCH (21:24)
[2024-11-08 23:36] VITALS: BP 116/59; TEMP 97.6; O2SAT 94
[2024-11-09 03:53] VITALS: BP 143/65; TEMP 97.2; O2SAT 94
[2024-11-09 06:09] LABS: CALCIUM LEVEL 8.3 MG/DL (8.3-10.6); CREATININE FOR GFR 1.01 MG/DL (0.55-1.30); GLOMERULAR FILTRATION RATE 54.6 (>32)
[2024-11-09 07:24] VITALS: BP 144/62; TEMP 97.5; O2SAT 95
[2024-11-09] MEDS: ATORVASTATIN 20 MG TAB PO SCH (08:31)
[2024-11-09] MEDS: APIXABAN 5 MG TAB (ELIQUIS) PO SCH (08:32)
[2024-11-09] MEDS ORDERED: atenoloL 50 MG TAB PO SCH (09:00)
[2024-11-09] MEDS ORDERED: ELIQ5TAB PO (10:04)
[2024-11-09] MEDS ORDERED: PACE200T PO (10:04)
[2024-11-09 12:00] VITALS: BP 146/68; TEMP 97.7; O2SAT 96
== END 2024-11-09 14:12 | disposition home or self-care (01) ==
LOC: EDBD 14:00 → M ED 14:00 → M ED INP 14:01 → M PCU 20:21
PROVIDERS: ADMIT Student in an Organized Health Care Education/Training Program; ATTEND Student in an Organized Health Care Education/Training Program
DX: I48.92 Unspecified atrial flutter (principal); I47.10 Supraventricular tachycardia, unspecified; R00.1 Bradycardia, unspecified; F41.9 Anxiety disorder, unspecified; I95.9 Hypotension, unspecified; I25.2 Old myocardial infarction; E83.51 Hypocalcemia; E11.9 Type 2 diabetes mellitus without complications; Z98.61 Coronary angioplasty status; I10 Essential (primary) hypertension; E78.5 Hyperlipidemia, unspecified; M19.90 Unspecified osteoarthritis, unspecified site; M81.0 Age-related osteoporosis without current pathological fracture; H04.129 Dry eye syndrome of unspecified lacrimal gland; K80.20 Calculus of gallbladder without cholecystitis without obstruction; Z80.9 Family history of malignant neoplasm, unspecified; Z83.3 Family history of diabetes mellitus; Z82.49 Family history of ischemic heart disease and other diseases of the circulatory system; Z79.899 Other long term (current) drug therapy; J30.1 Allergic rhinitis due to pollen; J30.81 Allergic rhinitis due to animal (cat) (dog) hair and dander
CPT/HCPCS: 36415; 71045; 80047; 80048; 80076; 82550; 82553; 83605; 83735; 84100; 84132; 84439; 84443; 84484; 85025; 85610; 85730; 93005; 93041; 93306; 94760; 96365; 96366; 96372; 97162; 99291; G0378; J0282; J1650; J1815

== ENCOUNTER → 2024-11-11 | Outpatient (CLI) | payer MEDICARE ==
[~2024-11-11] MED LIST changes: +ELIQ5TAB PO; +PACE200T PO; +TUMERIC PO; +[UNRECOGNIZED DRUG - OTHER]; +[UNRECOGNIZED DRUG - OTHER] PO
[2024-11-11 14:27] LABS: CALCIUM LEVEL 9.2 MG/DL (8.3-10.6); CREATININE FOR GFR 1.02 MG/DL (0.55-1.30); GLOMERULAR FILTRATION RATE 53.9 (>32); POTASSIUM SERUM 4.1 MMOL/L (3.5-5.1)
== END ==
LOC: M PLALAB 11:08
PROVIDERS: ATTEND Student in an Organized Health Care Education/Training Program
DX: N17.9 Acute kidney failure, unspecified (principal)

== ENCOUNTER 2024-11-18 20:16 | Observation (INO) | payer MEDICARE ==
[~2024-11-18] VITALS: Ht 160 cm; Wt 71.9 kg
[2024-11-18] MEDS ORDERED: AMIODARONE HCL 150 MG/100 ML PREMIXED BAG (NEXTERONE) As Ordered ONE (20:35)
[2024-11-18 20:50] LABS: BASO % 0.5 % (0.0-1.0); EOS # 0.1 10^3/uL (0.0-0.5); EOS % 1.4 % (0.0-3.0); HEMOGLOBIN 16.3 g/dl (12.0-15.5); LYMPH # 1.5 10^3/uL (1.5-5.0); LYMPH % 17.3 % (24.0-44.0); MEAN CORPUSCULAR HEMOGLOBIN 30.9 pg (27.0-33.0); MEAN CORPUSCULAR HGB CONC 33.3 g/dl (32.0-36.5); MEAN CORPUSCULAR VOLUME 92.8 fl (80.0-96.0); MONO # 0.8 10^3/uL (0.0-0.8); MONO % 9.5 % (2.0-8.0); NEUTROPHILS % 71.2 % (36.0-66.0); PLATELET COUNT, AUTOMATED 221 10^3/uL (150-450); RED BLOOD COUNT 5.28 10^6/uL (4.00-5.40); WHITE BLOOD COUNT 8.4 10^3/uL (4.0-10.0)
[2024-11-18 21:23] LABS: CALCIUM LEVEL 8.7 MG/DL (8.3-10.6); CREATININE FOR GFR 1.12 MG/DL (0.55-1.30); GLOMERULAR FILTRATION RATE 48.2 (>32); MAGNESIUM LEVEL 1.8 MG/DL (1.8-2.4); POTASSIUM SERUM 4.2 MMOL/L (3.5-5.1)
[2024-11-18] MEDS: AMIODARONE HCL 150 MG in IV 1 EA IV SCH (21:30)
[2024-11-18] MEDS: MAG SULF 1GM/100ML (MAG RUN) 1 GM in IV 1 EA IV ONE (22:33)
[2024-11-19] MEDS ORDERED: PACE200T PO (00:11)
[2024-11-19] MEDS ORDERED: AMIO200T49 PO (08:56)
[2024-11-19] MEDS ORDERED: ELIQ5TAB PO (08:56)
[2024-11-19] MEDS ORDERED: AMIODARONE 200 MG TAB (PACERONE) PO SCH (09:00)
[2024-11-19] MEDS ORDERED: MECLIZINE 25 MG TABLET PO SCH (09:00)
[2024-11-19] MEDS ORDERED: HOME MED LIST COMPLETE! XX SCH (09:00)
[2024-11-19 09:57] LABS: THYROID STIMULATING HORMONE 2.497 uIU/ML (0.55-4.78)
[2024-11-19] MEDS: APIXABAN 5 MG TAB (ELIQUIS) PO SCH (10:43)
[2024-11-19] MEDS: MECLIZINE 25 MG TABLET PO SCH (12:26)
[2024-11-19] MEDS: AMIODARONE 200 MG TAB (PACERONE) PO ONE (12:27)
[2024-11-19] MEDS: ATORVASTATIN 20 MG TAB PO SCH (13:29)
[2024-11-19 16:19] VITALS: BP 162/92; TEMP 96.5; O2SAT 97
[2024-11-19 19:52] VITALS: BP 143/73; TEMP 97.8; O2SAT 97
[2024-11-19 23:53] VITALS: BP 159/77; TEMP 97.2; O2SAT 94
[2024-11-20] VITALS (12 sets, daily range): BP systolic 68–180; BP diastolic 45–84; TEMP 97.2–98.5; O2SAT 94–97
[2024-11-20] MEDS: hydrALAZINE 20MG/ML 1ML VIAL IV PRN (03:59)
[2024-11-20 04:57] LABS: HEMATOCRIT 45.8 % (36.0-47.0); HEMOGLOBIN 15.3 g/dl (12.0-15.5); MEAN CORPUSCULAR HEMOGLOBIN 30.5 pg (27.0-33.0); MEAN CORPUSCULAR HGB CONC 33.4 g/dl (32.0-36.5); MEAN CORPUSCULAR VOLUME 91.4 fl (80.0-96.0); PLATELET COUNT, AUTOMATED 195 10^3/uL (150-450); RED BLOOD COUNT 5.01 10^6/uL (4.00-5.40); WHITE BLOOD COUNT 6.2 10^3/uL (4.0-10.0)
[2024-11-20] MEDS: NS 500 ML IV ONE (05:11)
[2024-11-20] MEDS: MIDODRINE 5 MG TAB PO ONE (05:15)
[2024-11-20 05:17] LABS: CALCIUM LEVEL 8.7 MG/DL (8.3-10.6); CREATININE FOR GFR 0.87 MG/DL (0.55-1.30); GLOMERULAR FILTRATION RATE 65.3 (>32); POTASSIUM SERUM 3.9 MMOL/L (3.5-5.1)
[2024-11-20] MEDS: AMIODARONE 200 MG TAB (PACERONE) PO SCH (09:33)
[2024-11-20] MEDS: MOM 30ML SUSPENSION UDC PO ONE (12:14)
[2024-11-21 00:27] VITALS: BP 158/78; TEMP 97.2; O2SAT 95
[2024-11-21 03:24] VITALS: BP 142/68; TEMP 97.7; O2SAT 93
[2024-11-21 07:25] VITALS: BP 148/72; TEMP 98.2; O2SAT 95
[2024-11-21] MEDS ORDERED: MECL-86 PO (09:56)
[2024-11-21] MEDS ORDERED: AMIO200T49 PO (10:29)
[2024-11-21 11:18] VITALS: BP 130/60; TEMP 97.1; O2SAT 93
[2024-11-22] MEDS ORDERED: MECL-86 PO (09:35)
== END 2024-11-21 15:50 | disposition home health service (06) ==
LOC: M ED 20:16 → M ED INP 20:17 → M PCU 11-19 16:04
PROVIDERS: ADMIT Internal Medicine; ATTEND Internal Medicine
DX: I48.91 Unspecified atrial fibrillation (principal); I47.10 Supraventricular tachycardia, unspecified; I48.92 Unspecified atrial flutter; I10 Essential (primary) hypertension; R94.31 Abnormal electrocardiogram [ECG] [EKG]; E78.5 Hyperlipidemia, unspecified; E11.9 Type 2 diabetes mellitus without complications; M19.90 Unspecified osteoarthritis, unspecified site; M85.80 Other specified disorders of bone density and structure, unspecified site; H04.129 Dry eye syndrome of unspecified lacrimal gland; K80.20 Calculus of gallbladder without cholecystitis without obstruction; Z82.49 Family history of ischemic heart disease and other diseases of the circulatory system; R42 Dizziness and giddiness; I44.0 Atrioventricular block, first degree; I25.10 Atherosclerotic heart disease of native coronary artery without angina pectoris; I25.2 Old myocardial infarction; Z98.61 Coronary angioplasty status; Z90.79 Acquired absence of other genital organ(s); Z98.51 Tubal ligation status; Z98.49 Cataract extraction status, unspecified eye; J30.81 Allergic rhinitis due to animal (cat) (dog) hair and dander; J30.1 Allergic rhinitis due to pollen; Z79.899 Other long term (current) drug therapy; Z79.01 Long term (current) use of anticoagulants
CPT/HCPCS: 36415; 71045; 80048; 83735; 84443; 85025; 85027; 87486; 87581; 87633; 87798; 93005; 96374; 96375; 97161; 97530; 99285; G0378; J0153; J0282; J0360; J3475

== ENCOUNTER → 2024-11-21 | Outpatient (CLI) | payer MEDICARE ==
[~2024-11-21] MED LIST changes: +AMIO200T49 PO; +ASPI81TAEC PO; +MECL-86 PO; +METO1TAB87 PO; +MILKSUS3 PO
== END ==
LOC: M EKG 16:12
PROVIDERS: ATTEND Internal Medicine
DX: I48.3 Typical atrial flutter (principal); Z53.9 Procedure and treatment not carried out, unspecified reason

== ENCOUNTER 2024-11-22 01:58 | Observation (INO) | payer MEDICARE ==
[~2024-11-22] VITALS: Ht 160 cm; Wt 70.6 kg
[~2024-11-22 01:58] MED LIST changes: -ASPI81TAEC PO; -METO1TAB87 PO; -MILKSUS3 PO
[2024-11-22 02:26] LABS: BASO # 0.1 10^3/uL (0.0-0.2); BASO % 0.6 % (0.0-1.0); EOS # 0.3 10^3/uL (0.0-0.5); EOS % 3.5 % (0.0-3.0); HEMATOCRIT 47.6 % (36.0-47.0); HEMOGLOBIN 15.5 g/dl (12.0-15.5); LYMPH # 1.3 10^3/uL (1.5-5.0); LYMPH % 16.3 % (24.0-44.0); MEAN CORPUSCULAR HEMOGLOBIN 29.9 pg (27.0-33.0); MEAN CORPUSCULAR HGB CONC 32.6 g/dl (32.0-36.5); MEAN CORPUSCULAR VOLUME 91.9 fl (80.0-96.0); MONO # 0.9 10^3/uL (0.0-0.8); MONO % 10.9 % (2.0-8.0); NEUTROPHILS # 5.3 10^3/uL (1.5-8.5); NEUTROPHILS % 68.6 % (36.0-66.0); PLATELET COUNT, AUTOMATED 215 10^3/uL (150-450); RED BLOOD COUNT 5.18 10^6/uL (4.00-5.40); WHITE BLOOD COUNT 7.8 10^3/uL (4.0-10.0)
[2024-11-22 02:43] LABS: INR 1.2; PARTIAL THROMBOPLASTIN TIME 28.7 SECONDS (24.8-34.2); PROTHROMBIN TIME 15.5 SECONDS (12.5-14.5)
[2024-11-22 02:53] LABS: CALCIUM LEVEL 8.9 MG/DL (8.3-10.6); CK-MB VALUE MASS 1.8 NG/ML (<3.6); CREATININE FOR GFR 0.99 MG/DL (0.55-1.30); GLOMERULAR FILTRATION RATE 55.9 (>32); MB/CK RELATIVE INDEX 3.15 (< OR =4); POTASSIUM SERUM 4.5 MMOL/L (3.5-5.1)
[2024-11-22 03:53] LABS: CK-MB VALUE MASS 1.8 NG/ML (<3.6)
[2024-11-22 04:04] LABS: MB/CK RELATIVE INDEX 3.52 (< OR =4)
[2024-11-22 05:59] LABS: CK-MB VALUE MASS 2.2 NG/ML (<3.6)
[2024-11-22 06:01] LABS: MB/CK RELATIVE INDEX 4.31 (< OR =4)
[2024-11-22 08:13] LABS: KETONE, URINE AUTO RFX NEGATIVE (NEGATIVE); NITRITE, URINE AUTO RFX NEGATIVE (NEGATIVE); RBC, URINE AUTO RFX 1 /HPF (0-3); SQUAM EPITHELIAL CELL UR AURFX 0 /HPF (0-6); WBC, URINE AUTO RFX 2 /HPF (0-3)
[2024-11-22] MEDS: ASPIRIN 81MG CHEW TABLET PO ONE (09:17)
[2024-11-22] MEDS ORDERED: HOME MED LIST COMPLETE! XX SCH (09:35)
[2024-11-22] MEDS ORDERED: MECL-86 PO (09:35)
[2024-11-22 09:57] LABS: CK-MB VALUE MASS 3.7 NG/ML (<3.6)
[2024-11-22 09:58] LABS: MB/CK RELATIVE INDEX 7.7 (< OR =4)
[2024-11-22 11:30] LABS: LEUKOCYTE ESTERASE UR AUTO RFX 1+ (NEGATIVE)
[2024-11-22] MEDS: ATORVASTATIN 20 MG TAB PO SCH (11:33)
[2024-11-22] MEDS: APIXABAN 5 MG TAB (ELIQUIS) PO SCH (11:34)
[2024-11-22] MEDS: MECLIZINE 25 MG TABLET PO PRN (11:34)
[2024-11-22] MEDS: AMIODARONE 200 MG TAB (PACERONE) PO SCH (11:34)
[2024-11-22] MEDS: METOPROLOL TART 25 MG TABLET PO SCH (11:34)
[2024-11-22] MEDS: DOCUSATE SODIUM 100MG CAPSULE PO SCH (11:35)
[2024-11-22 12:00] VITALS: BP 123/59; TEMP 97.9; O2SAT 97
[2024-11-22 16:00] VITALS: BP 116/57; TEMP 97.3; O2SAT 94
[2024-11-22 20:25] VITALS: BP 108/54; O2SAT 94
[2024-11-22] MEDS: METOPROLOL TART 12.5 MG PER 1/2 TAB PO SCH (21:00)
[2024-11-22] MEDS: MAALOX 30 ML SUSP *UDC PO PRN (22:32)
[2024-11-22 23:45] VITALS: BP 134/60; TEMP 97.3; O2SAT 93
[2024-11-23] VITALS (19 sets, daily range): BP systolic 106–147; BP diastolic 53–65; TEMP 97.2–97.8; O2SAT 94–100
[2024-11-23] MEDS: CEPACOL LOZENGE PO PRN (00:54)
[2024-11-23] MEDS: ACETAMINOPHEN 325 MG TAB PO PRN (00:55)
[2024-11-23] MEDS: CHLORASEPTIC SPRAY MT PRN (03:00)
[2024-11-23 05:06] LABS: BASO # 0.1 10^3/uL (0.0-0.2); BASO % 0.7 % (0.0-1.0); EOS # 0.4 10^3/uL (0.0-0.5); EOS % 3.8 % (0.0-3.0); HEMATOCRIT 44.7 % (36.0-47.0); HEMOGLOBIN 14.9 g/dl (12.0-15.5); LYMPH # 1.4 10^3/uL (1.5-5.0); LYMPH % 15.4 % (24.0-44.0); MEAN CORPUSCULAR HEMOGLOBIN 30.7 pg (27.0-33.0); MEAN CORPUSCULAR HGB CONC 33.3 g/dl (32.0-36.5); MEAN CORPUSCULAR VOLUME 92.2 fl (80.0-96.0); MONO # 0.9 10^3/uL (0.0-0.8); MONO % 9.6 % (2.0-8.0); NEUTROPHILS # 6.4 10^3/uL (1.5-8.5); NEUTROPHILS % 70.3 % (36.0-66.0); PLATELET COUNT, AUTOMATED 179 10^3/uL (150-450); RED BLOOD COUNT 4.85 10^6/uL (4.00-5.40); WHITE BLOOD COUNT 9.2 10^3/uL (4.0-10.0)
[2024-11-23 05:36] LABS: CREATININE FOR GFR 0.88 MG/DL (0.55-1.30); GLOMERULAR FILTRATION RATE 64.4 (>32); MAGNESIUM LEVEL 2.1 MG/DL (1.8-2.4); POTASSIUM SERUM 4.2 MMOL/L (3.5-5.1)
[2024-11-23] MEDS: ASPIRIN 81MG ENTERIC TABLET PO SCH (08:06)
[2024-11-23] MEDS: MOM 30ML SUSPENSION UDC PO PRN (08:07)
[2024-11-23] MEDS ORDERED: METO1TAB87 PO (10:52)
[2024-11-23] MEDS ORDERED: ASPI81TAEC PO (10:52)
[2024-11-23] MEDS ORDERED: MILKSUS3 PO (12:03)
[2024-11-23] MEDS ORDERED: METOPROLOL 5 MG/5 ML VIAL As Ordered ONE (17:58)
[2024-11-23] MEDS: METOPROLOL 5 MG/5 ML VIAL IV STA ×3 (18:00→18:13)
[2024-11-23] MEDS: NS (Normal Saline) 0.9% 1,000 ML IV SCH (18:37)
[2024-11-23] MEDS: METOPROLOL TART 25 MG TABLET PO ONE (18:44)
[2024-11-23] MEDS: METOPROLOL TART 12.5 MG PER 1/2 TAB PO STA (18:44)
[2024-11-23] MEDS: MOM 30ML SUSPENSION UDC PO SCH (20:43)
[2024-11-23] MEDS: AMIODARONE 200 MG TAB (PACERONE) PO SCH (20:46)
[2024-11-23] MEDS: METOPROLOL TART 25 MG TABLET PO SCH (20:47)
[2024-11-24 00:09] VITALS: BP 116/57; TEMP 98.3; O2SAT 92
[2024-11-24 04:45] VITALS: BP 111/56; TEMP 98.1; O2SAT 92
[2024-11-24 04:54] LABS: CALCIUM LEVEL 8.1 MG/DL (8.3-10.6); CREATININE FOR GFR 0.93 MG/DL (0.55-1.30); GLOMERULAR FILTRATION RATE 60.2 (>32); POTASSIUM SERUM 4.3 MMOL/L (3.5-5.1)
[2024-11-24 05:02] LABS: BASO % 0.3 % (0.0-1.0); EOS # 0.2 10^3/uL (0.0-0.5); EOS % 1.7 % (0.0-3.0); HEMATOCRIT 40.8 % (36.0-47.0); HEMOGLOBIN 13.8 g/dl (12.0-15.5); LYMPH # 1.4 10^3/uL (1.5-5.0); LYMPH % 14.3 % (24.0-44.0); MEAN CORPUSCULAR HEMOGLOBIN 31.4 pg (27.0-33.0); MEAN CORPUSCULAR HGB CONC 33.8 g/dl (32.0-36.5); MEAN CORPUSCULAR VOLUME 92.9 fl (80.0-96.0); MONO # 0.8 10^3/uL (0.0-0.8); MONO % 8.3 % (2.0-8.0); NEUTROPHILS # 7.5 10^3/uL (1.5-8.5); NEUTROPHILS % 75.1 % (36.0-66.0); PLATELET COUNT, AUTOMATED 171 10^3/uL (150-450); RED BLOOD COUNT 4.39 10^6/uL (4.00-5.40)
[2024-11-24 08:24] VITALS: BP 107/53; TEMP 98.2; O2SAT 95
[2024-11-24] MEDS ORDERED: E-Z-PAQUE 96% w/w SUSP 176GM BTL As Ordered ONE (11:53)
[2024-11-24] MEDS ORDERED: VARIBAR PUDDING 40% w/v 230ML TUBE As Ordered ONE (11:53)
[2024-11-24] MEDS ORDERED: VARIBAR NECTAR 40% w/v 240ML SUSP BTL As Ordered ONE (11:53)
[2024-11-24] MEDS ORDERED: BARIUM SULFATE 700 MG TABLET (E-Z-DISK) As Ordered ONE (11:54)
[2024-11-24 12:51] VITALS: BP 111/49; TEMP 98.2; O2SAT 96
[2024-11-24] MEDS ORDERED: METOPROLOL SUCC *XL* 25MG TAB (TopROL *XL*) PO SCH (16:00)
[2024-11-24 16:16] VITALS: BP 120/57; TEMP 98.9; O2SAT 94
[2024-11-24 19:51] VITALS: BP 116/54; TEMP 98.2; O2SAT 94
[2024-11-24] MEDS: METOPROLOL TART 25 MG TABLET PO SCH (22:38)
[2024-11-25 00:33] VITALS: BP 124/58; TEMP 97.2; O2SAT 96
[2024-11-25 05:16] LABS: BASO % 0.6 % (0.0-1.0); EOS # 0.3 10^3/uL (0.0-0.5); EOS % 4.9 % (0.0-3.0); HEMATOCRIT 44.5 % (36.0-47.0); HEMOGLOBIN 14.4 g/dl (12.0-15.5); LYMPH % 16.4 % (24.0-44.0); MEAN CORPUSCULAR HEMOGLOBIN 30.4 pg (27.0-33.0); MEAN CORPUSCULAR HGB CONC 32.4 g/dl (32.0-36.5); MEAN CORPUSCULAR VOLUME 94.1 fl (80.0-96.0); MONO # 0.6 10^3/uL (0.0-0.8); MONO % 9.3 % (2.0-8.0); NEUTROPHILS # 4.4 10^3/uL (1.5-8.5); NEUTROPHILS % 68.3 % (36.0-66.0); PLATELET COUNT, AUTOMATED 180 10^3/uL (150-450); RED BLOOD COUNT 4.73 10^6/uL (4.00-5.40); WHITE BLOOD COUNT 6.4 10^3/uL (4.0-10.0)
[2024-11-25 05:32] LABS: CALCIUM LEVEL 8.5 MG/DL (8.3-10.6); CREATININE FOR GFR 1.01 MG/DL (0.55-1.30); GLOMERULAR FILTRATION RATE 54.6 (>32); MAGNESIUM LEVEL 2.3 MG/DL (1.8-2.4); POTASSIUM SERUM 4.1 MMOL/L (3.5-5.1)
[2024-11-25 08:00] VITALS: BP 122/57; TEMP 97; O2SAT 91
[2024-11-25 09:30] VITALS: BP 122/57
[2024-11-25] MEDS: AMIODARONE 200 MG TAB (PACERONE) PO SCH (09:31)
[2024-11-25 12:00] VITALS: BP 121/60; TEMP 98.1; O2SAT 92
== END 2024-11-25 13:50 | disposition home health service (06) ==
LOC: M ED 01:58 → EDBD 01:58 → M ED INP 10:08 → M PCU 12:48
PROVIDERS: ADMIT Internal Medicine; ATTEND Internal Medicine
DX: I48.91 Unspecified atrial fibrillation (principal); R00.2 Palpitations; R42 Dizziness and giddiness; R06.02 Shortness of breath; Z86.79 Personal history of other diseases of the circulatory system; R79.89 Other specified abnormal findings of blood chemistry; I47.10 Supraventricular tachycardia, unspecified; I24.89 Other forms of acute ischemic heart disease; I25.10 Atherosclerotic heart disease of native coronary artery without angina pectoris; R05.9 Cough, unspecified; R07.0 Pain in throat; K22.5 Diverticulum of esophagus, acquired; E04.1 Nontoxic single thyroid nodule; K80.20 Calculus of gallbladder without cholecystitis without obstruction; N39.0 Urinary tract infection, site not specified; B95.2 Enterococcus as the cause of diseases classified elsewhere; I10 Essential (primary) hypertension; E11.9 Type 2 diabetes mellitus without complications; E78.5 Hyperlipidemia, unspecified; H04.129 Dry eye syndrome of unspecified lacrimal gland; M19.90 Unspecified osteoarthritis, unspecified site; M85.80 Other specified disorders of bone density and structure, unspecified site; J30.81 Allergic rhinitis due to animal (cat) (dog) hair and dander; J30.1 Allergic rhinitis due to pollen; Z79.899 Other long term (current) drug therapy; Z79.01 Long term (current) use of anticoagulants
CPT/HCPCS: 36415; 70450; 71045; 71250; 74230; 80048; 81001; 82550; 82553; 83735; 84484; 85025; 85610; 85730; 87088; 87186; 87486; 87581; 87633; 87798; 92526; 92610; 92611; 93005; 93041; 94760; 96374; 97161; 99285; G0378

== ENCOUNTER → 2025-03-06 | Outpatient (CLI) | payer MEDICARE ==
[~2025-03-06] MED LIST changes: -AMIO200T49 PO; +AMIO200T54 PO; +ASPI81TAEC PO; +METO1TAB87 PO; +MILKSUS3 PO
== END ==
LOC: M WHC 10:16
PROVIDERS: ATTEND Nurse Practitioner Family
DX: M85.89 Other specified disorders of bone density and structure, multiple sites (principal); E04.2 Nontoxic multinodular goiter